=== PATIENT | male | born 1950 | race Caucasian/White ===

== ENCOUNTER 2019-05-15 08:16 | Day surgery (SDC) | payer MEDICARE, OTHER ==
[2019-05-14 12:40] VITALS: BMI 25.7
[~2019-05-15 08:16] MED LIST: DEXAMETHASONE SOD PHOSPHATE 10 MG/ML 1 ML VIAL IV ONE; HYDROmorphone 0.5 MG/0.5 ML SYRINGE IVP PRN; LIDOCAINE 1% (10MG/ML) FOR IV START INTRADERMA PRN; ONDANSETRON 4 MG/2 ML VIAL IVP ONE; SCOPOLAMINE 1.5MG/72HR PATCH TRANSDERM ONE
[2019-05-15] MEDS ORDERED: LIDOCAINE 1% (10MG/ML) FOR IV START IV ONE (09:23)
[2019-05-15] MEDS: LACTATED RINGERS 1,000 ML IV SCH (09:25)
[2019-05-15 09:27] LABS: Basophils # (A) 0.1 k/uL (0-0.2); Basophils % (A) 1 %; Eosinophils # (A) 0.1 k/uL (0-0.7); Eosinophils % (A) 2 %; HCT 47.9 % (39.0-53.0); HGB 16.1 gm/dL (13.0-17.5); Lymphocytes # (A) 1.1 k/uL (1.0-4.8); Lymphocytes % (A) 24 %; MCH 33.1 pg (25.0-35.0); MCHC 33.6 g/dL (31.0-37.0); MCV 98.5 fL (80.0-100.0); Mean Platelet Volume 8.2; Monocytes # (A) 0.3 k/uL (0-1.0); Monocytes % (A) 7 %; Neutrophils % (A) 63 %; Platelet Count 194 k/uL (150-450); RBC 4.86 m/uL (4.30-5.90); RDW 12.1 % (11.5-15.5); WBC 4.8 k/uL (3.8-10.6)
[2019-05-15 09:57] LABS: ALT 25 U/L (4-49); African American GFR (CKD) >90 (>60 ml/min/1.73 sqM); Anion Gap 9 mmol/L; Blood Urea Nitrogen 12 mg/dL (9-20); Calcium 9.7 mg/dL (8.4-10.2); Carbon Dioxide 24 mmol/L (22-30); Chloride 106 mmol/L (98-107); Glucose 104 mg/dL (74-99); Non-African American GFR(CKD) >90 (>60 ml/min/1.73 sqM); Sodium 139 mmol/L (137-145); Total Bilirubin 1.6 mg/dL (0.2-1.3)
[2019-05-15 09:58] LABS: AST 42 U/L (17-59); Alkaline Phosphatase 101 U/L (38-126); Potassium 4.4 mmol/L (3.5-5.1)
[2019-05-15 09:59] LABS: Albumin 4.6 g/dL (3.5-5.0); Total Protein 7.9 g/dL (6.3-8.2)
[2019-05-15] MEDS ORDERED: ROCURONIUM BROMIDE 10 MG/ML 5 ML VIAL IV ONE (12:41)
[2019-05-15] MEDS ORDERED: PROPOFOL 10 MG/ML 20 ML VIAL IV ONE (12:41)
[2019-05-15] MEDS ORDERED: LIDOCAINE 1% INJ 10MG/ML (20 ML MDV) ONE (12:41)
[2019-05-15] MEDS ORDERED: MIDAZOLAM 2 MG/2 ML VIAL ONE (12:41)
[2019-05-15] MEDS ORDERED: SUCCINYLCHOLINE CHLORIDE 100 MG/5 ML SYR IV ONE (12:41)
[2019-05-15] MEDS ORDERED: HYDROmorphone (PF) 1 MG/ML ONE (12:41)
[2019-05-15] MEDS ORDERED: NEOSTIGMINE 1 MG/ML 10 ML VIAL ONE (12:41)
[2019-05-15] MEDS ORDERED: GLYCOPYRROLATE 0.2 MG/ML 2 ML VIAL ONE (12:41)
[2019-05-15] MEDS ORDERED: fentaNYL (PF) 50 MCG/ML 2 ML AMP ONE (12:41)
[2019-05-15] MEDS ORDERED: BUPIVACAIN-EPI 0.25%-1:200,000 30 ML VIAL SQ ONE (14:36)
--- NOTE | 2019-05-15 14:40 | P.OP ---
Date of Procedure: 05/15/19 Preoperative Diagnosis: Prostate cancer Postoperative Diagnosis: Prostate cancer Procedure(s) Performed: Robotic radical prostatectomy Implants: None Anesthesia: DEBO Surgeon: Kwabena Kat Estimated Blood Loss (ml): 25 IV fluids (ml): 600 Urine output (ml): 100 Pathology: other (Prostate and seminal vesicles) Condition: stable Disposition: PACU Indications for Procedure: Unfavorable intermediate risk prostate cancer Operative Findings: Moderate sized prostate. T2 disease left side. Description of Procedure: This is a patient with a history of prostate cancer. The procedure of robot assisted laparoscopic radical prostatectomy was discussed with the patient including the potential risks and complications of the procedure. He elected to proceed with the operation. A nodule was not detected on digital exam under anesthesia.The patient was placed in a supine, Trendelenberg position with adequate padding of the pressure points, shoulders, back, legs and arms. He was then prepped and draped in the standard fashion. A 18F rizzo catheter was placed to gravity drainage. A Veress needle was placed through a teresita-umbilical puncture and a pneumo-peritoneum created to 20mmHg during port placement which is thereafter lowered to 15mmHg.A 8 mm port on the left side of the umbilicus was placed for the scope. Next,under vision a 8mm robotic ports was placed lateral to each rectus slightly below the camera port. The right physicians assistant right iliac fossa 12mm port and right paramedian 5mm port were placed followed by the left iliac fossa 5mm port. The robot was then docked to the 8mm robotic ports and then each robotic arm and tower was checked in relation to the patient's legs and hands to avoid inadvertent compression.The peritoneal cavity was inspected and then an inverted U-shaped incision began laterally to the left medial umbilical ligament and extended high across the midline to the right umbilical ligament. The limbs of the "U" extended to the level of the vasa on both sides. We next developed the preperitoneal space and the space of Retzius. The endopelvic fascia was divided and the levator muscle was reflected off the lateral surface of the prostate. Cautery was used to dissected the bladder away from the prostate. After the anterior bladder neck was incised and the bladder entered the the posterior bladder neck was exposed and the ureteral orifices identified. The posterior bladder neck was then incised and dissected away from the prostate. The bladder neck was noted to be normal and did not require reconstruction. The vas and the seminal vesicles were now exposed and dissected to their insertions into the prostate and were not spared. The posterior layer of the Denonvillier's fascia was incised to enter into the plane between prostate and perirectal fat.Each lateral pedicle was controlled with clips and cautery for hemostasis. Nerve preservation was performed on the right and partial nerve sparing on the left side. The puboprostatic ligament was incised where it inserted into the apex of the prostate and a plane between urethra and dorsal venous complex developed to expose the anterior urethral surface. The anterior wall of the urethra was transected with the scissors a few millimeters distal to the apex of the prostate. DV suture was placed. The freed specimen was then inspected and placed in an endo-catch specimen retrieval bag. The prostate was removed following the completion of the anastomosis. There was attention paid to hemostasis with judicious use of cautery.Two 3-0 V-Lock stitches (MVAC) tied together to form a pledget were used to complete the running continuous circumferential urethrovesical anastamosis with dual layer reconstruction. The outer layer V-Lock suture was placed initially to reapproximate Denonvillier's fascia posteriorly before placing the inner layer MVAC suture as the urethrovesical anastamosis proper. After the inner layer was tied, the anastamosis was checked for leaks before closing the outer layer anteriorly. A new 20 Maltese Rizzo catheter was introduced and inflated to 20cc. The bladder was filled with 250 cc saline, with the balloon to test the integrity of the anastomosis.No leak was identified. The specimen was removed after enlarging the umbilical port incision as required. The umbilical fascia was closed with PDS suture and closed in layers. All ports were closed with a subcuticular stitch. Sponge, instrument, and needle counts were correct at the end of the case. The patient tolerated the procedure well and was accompanied to the recovery room in stable condition
[2019-05-15] MEDS ORDERED: ONDANSETRON 4 MG/2 ML VIAL IVP PRN (16:24)
[2019-05-15] MEDS ORDERED: ACETAMINOPHEN TAB 325 MG TAB PO PRN (16:24)
[2019-05-15] MEDS ORDERED: FAMOTIDINE 20 MG TAB PO PRN (16:24)
[2019-05-15] MEDS ORDERED: HYDROmorphone 1 MG/ML 1 ML SYRINGE IVP PRN (16:24)
[2019-05-15] MEDS: KETOROLAC 30 MG/ML 1 ML VIAL IVP PRN ×2 (17:00→23:18)
[2019-05-15] MEDS: DEXTROSE 5%-0.45% NACL 1,000 ML IV SCH (19:42)
[2019-05-15] MEDS: HEPARIN SODIUM,PORCINE 5,000 UNIT/ML 1 ML VIAL SQ SCH (23:15)
[2019-05-16] MEDS: DEXTROSE 5%-0.45% NACL 1,000 ML IV SCH (02:30)
[2019-05-16 05:07] VITALS: BP 147/72; PULSE 57; RESP 18; TEMP 97.6
[2019-05-16] MEDS: HEPARIN SODIUM,PORCINE 5,000 UNIT/ML 1 ML VIAL SQ SCH (08:32)
--- NOTE | 2019-05-17 12:30 | P.DS ---
Providers Date of admission: 05/15/2019 Expected date of discharge: 05/16/19 Attending physician: Kwabena Kat Primary care physician: Stated None Hospital Course: Uneventful. He ambulated and tolerated a diet. Urine clear. pain controlled Assessment: stable and ready for discharge Procedures: Robotic radical prostatectomy Patient Condition at Discharge: Good Plan - Discharge Summary Discharge Rx Participant: Yes New Discharge Prescriptions: No Action Famotidine [Pepcid] 20 mg PO DAILY PRN PRN Reason: Heartburn Tamsulosin HCl [Flomax] 0.4 mg PO HS Discharge Medication List Famotidine [Pepcid] 20 mg PO DAILY PRN 05/14/19 [History] Tamsulosin HCl [Flomax] 0.4 mg PO HS 05/14/19 [History] Follow up Appointment(s)/Referral(s): Kwabena Kat MD [STAFF PHYSICIAN] - 1 Week Patient Instructions/Handouts: Urinary Leg Bag (GEN), Robot Assisted Laparoscopic Prostatectomy (DC) Activity/Diet/Wound Care/Special Instructions: Diet as tolerated Activity as tolerated Plan of Treatment: follow up with urologist Dr Tee Kat in 1 week for catheter removal and discussion of pathology
== END 2019-05-16 14:28 ==
LOC: OR 08:16 → 5NMEDONC 14:53 → OR 05-16 14:28
PROVIDERS: ATTEND Urology
DX: C61 Malignant neoplasm of prostate (principal); K21.9 Gastro-esophageal reflux disease without esophagitis; Z88.0 Allergy status to penicillin; Z98.52 Vasectomy status; Z79.899 Other long term (current) drug therapy; Z80.42 Family history of malignant neoplasm of prostate
CPT/HCPCS: 93005; 80053; 85025; 88309; 55866; C1762; J2250; J1644 ×2; J1100; J2710; J0690 ×2; J2405; J2001; J3010; J1885; J1170; J0330; J2704